=== PATIENT | male | born 1980 | race Caucasian/White ===

== ENCOUNTER → 2017-04-05 | Outpatient (CLI) | payer BC | LOC: LAB 15:24 | DX: R06.00 Dyspnea, unspecified (principal); J01.01 Acute recurrent maxillary sinusitis ==

== ENCOUNTER → 2020-08-08 | Outpatient (CLI) | payer BC ==
[2020-08-08 09:23] LABS: HEMATOCRIT 46.1 % (42.0-52.0); HEMOGLOBIN 15.7 g/dL (13.5-18.0); MEAN CELL VOLUME 89 fl (78-100); MEAN CORPUSCULAR HEMOGLOBIN 30 pg (27-31); MEAN CORPUSCULAR HGB CONC 34 g/dL (33-37); MEAN PLATELET VOLUME 10.1 fl (7.4-10.4); PLATELET COUNT 237 K/mm3 (130-400); RED BLOOD COUNT 5.21 M/mm3 (4.20-5.60); RED CELL DISTRIBUTION WIDTH 12.5 % (11.5-14.5); WHITE BLOOD COUNT 6.6 K/mm3 (4.8-10.8)
[2020-08-08 09:30] LABS: POTASSIUM 4.1 mmol/L (3.5-5.1)
[2020-08-08 09:31] LABS: ALBUMIN 4.5 g/dL (3.5-5.0)
[2020-08-08 09:32] LABS: CALCIUM 9.4 mg/dL (8.3-10.5)
[2020-08-08 09:33] LABS: TOTAL PROTEIN 6.7 g/dL (6.4-8.3)
[2020-08-08 10:28] LABS: ERYTHROCYTE SEDIMENTATION RATE 2 mm/hr (0-15)
== END ==
LOC: LAB 09:09
PROVIDERS: Internal Medicine
DX: Z00.00 Encounter for general adult medical examination without abnormal findings (principal); Z12.5 Encounter for screening for malignant neoplasm of prostate